=== PATIENT | female | born 1975 | race Caucasian/White ===

== ENCOUNTER 2019-04-18 09:34 | Outpatient (CLI) | payer BC, SELFPAY ==
--- NOTE | ~2019-04-18 | MM_ITS ---
EXAMINATION: MM screening joce BI w emmanuel HISTORY: Screening mammogram TECHNIQUE: Craniocaudal and mediolateral oblique 3-D tomosynthesis images were obtained and synthetic 2-D images were generated. CAD analysis was submitted and interpreted. COMPARISON: 07/29/2010 BREAST PARENCHYMAL COMPOSITION: There are scattered areas of fibroglandular density. FINDINGS: There is no evidence of suspicious mass, calcification, or architectural distortion to sugg est malignancy in either breast. There has been no suspicious interval change. IMPRESSION: 1. No mammographic evidence of malignancy. 2. Recommend routine screening mammography in one year. BI-RADS Category 1: Negative Reviewed, dictated and finalized at location A.
== END 2019-04-18 09:35 | disposition home or self-care (01) ==
LOC: ANHIMG 09:37
PROVIDERS: Visit Provider Obstetrics & Gynecology
DX: Z12.31 Encounter for screening mammogram for malignant neoplasm of breast (principal)
CPT/HCPCS: 77063; 77067

== ENCOUNTER 2020-02-28 02:24 | Outpatient (CLI) | payer BC, SELFPAY ==
[2020-02-28 18:38] LABS: SARS-CoV-2 RNA PCR Negative
== END 2020-02-28 02:25 | disposition home or self-care (01) ==
LOC: ANHCOVIDDT 02:24
PROVIDERS: Visit Provider Podiatrist Foot & Ankle Surgery
DX: Z01.812 Encounter for preprocedural laboratory examination (principal); Z20.822 Contact with and (suspected) exposure to COVID-19
CPT/HCPCS: C9803; U0003; U0005

== ENCOUNTER 2020-03-02 00:58 | Day surgery (SDC) | payer BC, SELFPAY ==
[2020-02-27 11:49] VITALS: BMI 33.2
--- NOTE | 2020-03-01 15:25 | WPDANESEPPF ---
Anes - Initial Pre Proc Eval Procedure: Operation Date: 03/02/20 10:45 Proposed Procedures p Lapidus Bunionectomy Left Foot, - Alli Law JR, MD s Fidel Phalangeal Osteotomy Left Hallux - Alli Law JR, MD Date/Time: 03/01/20 15:25 Surgeon: Alli Law JR, MD Pre Op Diagnosis: bunion left foot Patient Data Age: 45 Gender: F Height: 1.55 m Weight: 79.83 kg Allergies Allergy/AdvReac Type Severity Reaction Status Date / Time No Known Allergies Allergy Verified 03/02/20 08:44 Home Medications Medication Instructions Recorded Confirmed Type No Home Medications 09/06/19 03/02/20 History Patient hx anesthesia problems: none Family hx anesthesia problems: none PMFSH Past Medical History Medical History (Updated 03/01/20 @ 15:25 by Kam Portillo MD) Obesity Family History Family History Mother Hypertension Family history of elevated blood lipids Grandparent Hypertension Cerebrovascular accident Father Family history of elevated blood lipids Social History Social History Smoking status: Never smoker Second hand tobacco smoke exposure: No Alcohol intake: never Living arrangements: with family Spiritual care concerns: No Anes - Eval Final PreProcedure Day of Procedure 03/01/20 15:25 Patient weight: obese Heart: regular rate and rhythm Lungs: clear to auscultation and normal air movement Airway: Mallampati scale class II Neurological: alert and oriented Last oral intake: >/= 8 hours ASA classification: II Emergent: no Anesthetic plan: proceed Anesthesia type and monitoring: general LMA Informed Consent: The patient's anesthetic plan and its attendant risks and benefits were discussed with the patient/family/POA. Questions were solicited and answers provided to the satisfaction of the patient/family/POA.
--- NOTE | ~2020-03-02 | XR_ITS ---
EXAMINATION: XR surgery orthopedic DATE: 03/02/2020 14:01 INDICATION: Left foot bunionectomy TECHNIQUE: 2 fluoroscopic spot images of the left forefoot were obtained during procedure performed liliam Law. Radiologist was not present for the imaging or procedure. The amount of fluoroscopy t caridad used during this procedure was 0.4 minutes. COMPARISON: None. FINDINGS: Old healed realignment osteotomy at the distal diaphysis of the fifth metatarsal with cerclage wire f ixation. Likely chronic first tarsal metatarsal arthrodesis with dorsal plate and screw fixation. The re is an additional cannulated lag screw extending between the base of the first metatarsal and inter mediate cuneiform. Soft tissue swelling is small amount of gas in the region of the first metatarsoph alangeal joint with recent-appearing bunionectomy/osteotomy at the medial head of the first metatarsa l. There is a staple at the medial base of the first proximal phalanx likely related to an age-indete rminate realignment osteotomy. Alignment of the bones appears near-anatomic. No fracture. Profiled marva int spaces appear relatively preserved. IMPRESSION: 1. Likely combination of old and new postoperative changes in the left mid and forefoot as detailed a servando. Correlate with procedure note. Reviewed, dictated and finalized at location A. NDER PRESS FEEDER IMPRESSION: 1. Likely combination of old and new postoperative changes in the left mid and forefoot as detailed above. Correlate with procedure note.
--- NOTE | 2020-03-02 07:02 | WPDHPUPDATE1 ---
History and Physical Update Update Date/Time: 03/02/20 07:02 History and Physical has been reviewed, including an updated exam of the patient. There are NO changes in the patient's condition. Risks, benefits, and alternatives have been discussed and questions answered. Patient agrees to proceed with procedure.
[2020-03-02 08:40] VITALS: BP 159/98; PULSE 93; RESP 16; TEMP 36.5; O2SAT 100
[2020-03-02] MEDS: LACTATED RINGERS 1,000 ML 30 ML IV CONT ×2 (09:02→14:19)
--- NOTE | 2020-03-02 09:23 | WPDANESPNB ---
Anes - Peripheral Nerve Block Date/Time: 03/02/20 09:23 I have discussed with the patient/family/POA the placement of a peripheral nerve block for post-operative pain management, including associated risks, benefits, complications, and side effects. Alternative methods of post-operative analgesia were detailed. Questions were solicited and answers provided to the satisfaction of the patient/family/POA. Time-Out: A pre-procedural Time-Out was completed immediately before starting the procedure and confirmed: Patient Identification, Site, Procedure, Patient Position and the Availability of Requisite Equipment. Clinical Indications: Acute post-operative pain management requested by the operative surgeon. Nerve Block Insertion Note Needle: 22 gauge, stimulating, insulated echogenic needle.
--- NOTE | 2020-03-02 11:47 | SUR.PREOP ---
patient and call to her mom to inform of delay understanding stated by both
[2020-03-02] MEDS: ceFAZolin 2 GM/D5W 50 ML 2 GM/50 ML BAG IVPB (12:22)
[2020-03-02] MEDS: BUPIVACAINE HCL 0.5% PF 30 ML VIAL 10 ML INFILTRATE (12:29)
--- NOTE | 2020-03-02 13:42 | SUR.OPER ---
left foot Lapidus Implants 4.0x35 cannulated screw 1 Lapifuse Lapidus Plate 1 3.5x18 Locking Screw 2 3.5x18 Nonlock Screw 1 3.5x16 Locking Screw 1 3.5x12 Locking Screw 1 Fidel Holguin [id number] Fuseforce Nitinol Staple Kit Lot [id number], Exp 2024-06-19.
[2020-03-02 14:19] VITALS: BP 112/69; PULSE 99; RESP 20; O2SAT 93
--- NOTE | 2020-03-02 14:24 | PM.PROC ---
Procedure Note - Detailed Date of procedure: 03/02/20 Pre-op diagnosis: bunion left foot Procedure performed: 1. Lapidus bunionectomy left foot 2. Fidel Phalangeal osteotomy left hallux Implants: [employer] Lapifuse plate with four 3.5 locking screws and one 3.5 non locking screw. One 4.0mm MaxTorque [employer]guin medical cannulated screw Anesthesia: GLMA and local Surgeon: Alli Law JR, DPM Estimated blood loss (mL): 5 Drains: No Packing: No Pathology: none sent Complications: No immediate complications Condition: stable Disposition: same day Findings: Under mild sedation, the patient was brought to the operating room, placed on the operating table in the supine position. A pneumatic ankle tourniquet was placed about the patient's left ankle. Following general anesthesia a tibial and deep peroneal nerve block was performed with a one to one mixture of 2% Lidocaine plain and 0.5% Marcaine plain. The foot was then scrubbed, prepped, and draped in the usual aseptic manner. An Esmarch bandage was then used to examine the patient's left foot and pneumatic ankle tourniquet was then inflated. Surgery began in the following manner. Attention was directed to the dorsal aspect of the 1st metatarsocuneiform to the left foot where fluoroscopy was used to identify the joint. A 3 cm incision was made overlying the dorsal aspect of the 1st metatarsocuneiform joint of the left foot just medial to the extensor hallucis longus tendon. The incision was then continued deep down through the subcutaneous tissues using sharp and blunt dissections. All bleeders were ligated and cauterized as necessary. At this point, the extensor tendon was identified and reflected laterally. Next, the periosteum and capsular incision was made at the full length of the skin incision exposing the medial cuneiform as well as the base of the 1st metatarsal. Next, a sagittal bone saw was introduced from dorsal to plantar across the 1st metatarsocuneiform joint in order to free up any ankylosed portions of the joint and also to release any adhesions. Two Steinmann Pins were driven from dormal to plantar 1cm proximal and distal to the 1st metatarsal cuneiform joint. The provided curved osteotomy was used to resect the cartilage and a 2.0mm drill bit was used to fenestrate the joint to promote fusion. At this point, a small 2 cm incision was made along the lateral aspect of the 1st metatarsophalangeal joint of the left foot and a lateral release consisting of a lateral capsule incision as well as fraying of the adductor hallucis tendon with the tenotomy as well as releasing the distal aspect and lateral aspect and proximal aspect of the fibular sesamoid. After this, a lateral release was performed. The hallux was noted to be slightly reduced as far as the track-bound hallux. A 3m incision was made medial to the first metatarsal head extending proximal to the proximal phalanx. A 1.4mm Steinmann pin was driven from medial to lateral across the 1st metatarsal head. Next the Lapifuse positioner was used to get 3 plane correction of the hallux abductovalgus deformity. Fluoroscopy was used to make sure that the 1st MPJ was congruous and the sesamoid apparatus was centered under the first metatarsal. Next a 4mm cannulated screw was driven from the medial base of the 1st metatarsal to the intermediate cuneiform bone. Excellent compression was noted, next a Lapifuse 2mm step off plate was placed dorsal medially along the 1st metatarsal cuneform joint and 3.5mm screws, 4 locking and one eccenrically drilled non locking, were used to further compress the joint to ensure arthrodesis. At this point the positioner was removed and fluroscopy was used to make sure that deformity correction was maintained. The patient still had slight hallux abductus so I made a closing medial base wedge resection from the base of the proximal phalanx and compressed the osteotomy with a MyCare 8mm n
[2020-03-02 14:45] VITALS: BP 131/91; PULSE 107; RESP 18; O2SAT 97
[2020-03-02] MEDS: oxyCODONE HCL (*CRX) 5 MG TAB IR PO (14:52)
[2020-03-02 15:15] VITALS: BP 129/84; PULSE 99; RESP 18
== END 2020-03-02 15:42 | disposition home or self-care (01) ==
PROVIDERS: Visit Provider Podiatrist Foot & Ankle Surgery
PROC: (CPT 28299; principal; 2020-03-02 10:45)
PROC: (CPT 28750; 2020-03-02 10:45)
DX: M21.612 Bunion of left foot (principal); E66.9 Obesity, unspecified; Z68.32 Body mass index [BMI] 32.0-32.9, adult
CPT/HCPCS: 28298; 28297; A9270; C1713; C9290; J0690; J2250; J2704; J3010; J7120

== ENCOUNTER 2020-03-21 12:01 | Outpatient (CLI) | payer BC, SELFPAY ==
--- NOTE | ~2020-03-21 | US_ITS ---
EXAMINATION: US venous doppler [facility] DATE: 03/21/2020 12:48 INDICATION: Left lower limb swelling TECHNIQUE: James scale images without and with compression and Doppler images of the left lower extrem ity veins were obtained. COMPARISON: None FINDINGS: There is thrombosis in the left posterior tibial and soleus veins. The left common femoral vein, profunda femoral vein, femoral vein, popliteal vein, peroneal trunk, and greater saphenous vein are patent. IMPRESSION: 1. Thrombosis in the left posterior tibial and soleus veins. Reviewed, dictated and finalized at location A. E BOSS
== END 2020-03-21 12:02 | disposition home or self-care (01) ==
PROVIDERS: Visit Provider Podiatrist Foot & Ankle Surgery
DX: M79.605 Pain in left leg (principal); M79.89 Other specified soft tissue disorders; I82.442 Acute embolism and thrombosis of left tibial vein; I82.462 Acute embolism and thrombosis of left calf muscular vein
CPT/HCPCS: 93971

== ENCOUNTER 2020-03-21 13:06 | Emergency (ER) | payer BC, SELFPAY ==
--- NOTE | 2020-03-21 13:18 | ED.GENADULT ---
HPI - General Adult General Chief complaint: Extremity Injury, Lower Stated complaint: left leg dvt Time Seen by Provider: 03/21/20 13:11 Source: RN notes reviewed History of Present Illness HPI narrative: Patient presents to emergency department from outpatient radiology for left lower extremity DVT. Patient states she had a bunionectomy performed by Dr. Law 3 weeks ago. She states that she had been on Xarelto with her last dose this past Thursday, March 16 states that since then she has been on aspirin she states that she noted some cramping in her left calf starting yesterday and was sent for an outpatient ultrasound today which showed a DVT and was transferred to the ED for further evaluation she denies any fevers or chills chest pain shortness of breath or any other symptoms Related Data Allergies Allergy/AdvReac Type Severity Reaction Status Date / Time No Known Allergies Allergy Verified 03/02/20 08:44 Review of Systems Review of Systems: Narrative: Gen.: Denies fevers or chills ENT: Denies congestion Respiratory: Denies shortness of breath or cough CV: Denies chest pain or palpitations GI: Denies abdominal pain nausea, emesis or diarrhea Musculoskeletal: See HPI Neuro: Denies numbness, tingling, weakness or focal weakness Skin: Denies rash Except as documented, all other systems reviewed and negative [facility] Past Medical History Medical History Obesity Family History Family History Mother Hypertension Family history of elevated blood lipids Grandparent Hypertension Cerebrovascular accident Father Family history of elevated blood lipids Social History Social History Smoking status: Never smoker Second hand tobacco smoke exposure: No Alcohol intake: never Gender identity (if verbalized by the patient): Female Spiritual care concerns: No Exam Narrative: Exam Narrative: APPEARANCE: No acute distress, nontoxic, resting in bed EYES: EOMI HEENT: Normocephalic, atraumatic RESPIRATORY: No respiratory distress Clear to auscultation bilaterally with no rhonchi wheezing or rales. CARDIOVASCULAR: Regular rate and rhythm without murmurs rubs or gallops. ABDOMINAL: Soft, nontender MUSCULOSKELETAl: Moves all extremities. No clubbing, cyanosis or edema. Left lower extremity with postop boot in place left calf tender to palpation no tenderness of the left knee or hip NEURO: Awake and alert. Following commands, speech normal, no focal deficits SKIN:: Warm, dry. No rashes lesions or abrasions PSYCHIATRIC: Normal affect/mood, Course Course Emergency Course: Reviewed ultrasound from outpatient radiology showing a left DVT Discussed with Dr. Law presentation work-up request patient restarted on Xarelto starter pack and will follow as an outpatient Patient states she does not have a current PCP states she used to be seen by Dr. Carballo he does plan to start seeing Dr. Martita Wisdom Discussed with patient results of workup and diagnosis. Discussed need for follow-up with primary care, proper use of medication, and reasons to return to the emergency department. Patient understands and agrees to current treatment plan Vital Signs Vital signs: Vital Signs Temperature 97.8 F 03/21/20 13:34 Pulse Rate 99 03/21/20 13:34 Respiratory Rate 17 03/21/20 13:34 Blood Pressure 128/85 03/21/20 13:34 Pulse Oximetry 99 03/21/20 13:34 Temperature 97.8 F 03/21/20 13:34 Pulse Rate 99 03/21/20 13:34 Respiratory Rate 17 03/21/20 13:34 Blood Pressure 128/85 03/21/20 13:34 Pulse Oximetry 99 03/21/20 13:34 Medical Decision Making Vital Signs Vital Signs: Vital Signs Temperature 97.8 F 03/21/20 13:34 Pulse Rate 99 03/21/20 13:34 Respiratory Rate 17 03/21/20 13:34 Blood Pressure 128/85 03/21/20 13:
[2020-03-21 13:29] LABS: Basophils Absolute Auto 0.1 K/mm3 (0.0-0.1); Basophils Percent Auto 0.6 % (0.2-1.2); Eosinophils Absolute Auto 0.1 K/mm3 (0-0.3); Eosinophils Percent Auto 1.2 % (0-4.4); Hemoglobin 15.3 g/dL (12.0-15.0); Immature Granulocyte Absolute 0.02 K/mm3 (0.00-0.031); Immature Granulocyte Percent A 0.2 % (0-0.5); Lymphocytes Absolute Auto 1.74 K/mm3 (0.9-3.2); Lymphocytes Percent Auto 21.2 % (18.3-44.2); Mean Corpuscular HGB Conc 33.3 g/dl (32-36); Mean Corpuscular Volume 90.2 fl (80-100); Mean Platelet Volume 9.9 fl (7.4-10.4); Monocytes Absolute Auto 0.6 K/mm3 (0.1-0.6); Monocytes Percent Auto 7.3 % (2.6-8.5); Neutrophils Absolute Auto 5.7 K/mm3 (1.3-6.7); Neutrophils Percent Auto 69.5 % (45.5-73.1); Platelet Count Result 318 k/mm3 (150-375); Red Cell Distribution Width 12.2 % (11.5-14.5); White Blood Count 8.2 K/mm3 (4.5-10.0)
[2020-03-21 13:34] VITALS: BP 128/85; PULSE 99; RESP 17; TEMP 36.6; O2SAT 99
[2020-03-21 13:39] LABS: Prothrombin Time 13.9 Seconds (11.1-14.7)
[2020-03-21 13:40] LABS: Partial Thromboplastin Time 27.9 SECONDS (22.3-36.8)
[2020-03-21 13:45] LABS: Anion Gap 10 mmol/L (8-16); Blood Urea Nitrogen 16 mg/dL (7-17); Calcium 9.7 mg/dL (8.4-10.2); Carbon Dioxide 26 mmol/L (22-30); Chloride 103 mmol/L (98-107); Estimated CRCL calculation 97 ml/min; Estimated Glomerular Filt Rate > 60; Glucose 98 mg/dL (65-105); Potassium 3.9 mmol/L (3.4-5.0); Sodium 139 mmol/L (137-145)
[2020-03-21] MEDS: RIVAROXABAN 15 MG TABLET PO (14:01)
--- NOTE | 2020-03-21 14:26 | PCCCNOTE ---
Care Coordination spoke with pt and her mother about cost of Xarelto. Pt states she just took her last Xarelto for her surgical procedure today. Now due to having DVT she will need Xarelto 15 mg BID for 21 days. Spoke with Pharmacist at [facility] about cost of medication. Pharmacy states pt will have a $70 co-pay. Informed pt that she could possibly be eligiable for $10 coupon on-line at [employer] and look up care pack and then present coupon code to pharmacy when picking up med. Informed pt the ED MD states she will need to take Xarelto a total of 3 months. Pt and mother states she is agreeable to taking Xarelto.
[2020-03-21 14:53] VITALS: BP 127/73; PULSE 90; RESP 15; O2SAT 99
== END 2020-03-21 14:55 | disposition home or self-care (01) ==
LOC: ANHED 14:30
PROVIDERS: Emergency Provider Emergency Medicine
DX: I82.402 Acute embolism and thrombosis of unspecified deep veins of left lower extremity (principal)
CPT/HCPCS: 36415; 80048; 85025; 85610; 85730; 99283; A9270

== ENCOUNTER 2020-03-24 13:39 | Emergency (ER) | payer BC, SELFPAY ==
[2020-03-24 13:46] VITALS: BP 141/95; PULSE 114; RESP 16; TEMP 36.4; O2SAT 98
--- NOTE | 2020-03-24 14:09 | ED.LOWEXIN ---
HPI - Extremity Injury (Lower) General Chief Complaint: Extremity Injury, Lower Stated Complaint: left leg dvt Time Seen by Provider: 03/24/20 13:54 Source: patient and family Mode of arrival: ambulatory Limitations: no limitations History of Present Illness HPI Narrative: 45-year-old female comes into the emergency department today with complaints of pain and swelling in her left foot. Patient has a few issues going on. She admits to a recent bunionectomy performed by her polisher dial on 09 March. This has been healing well. Patient was unfortunately subsequently diagnosed with a DVT in her calf on the same side on the of this month. Patient has been taking Xarelto for this. She states that she had a little bit of discoloration, pain and throbbing in this affected foot. She notes that now that she is come to the ER and that her foot has been elevated the discoloration seems to have nearly completely disappeared. Her mother also notes that they were concerned about some discharge from one of the surgical wounds. Related Data Allergies Allergy/AdvReac Type Severity Reaction Status Date / Time No Known Allergies Allergy Verified 03/24/20 14:15 Review of Systems Review of Systems: Narrative: CONSTITUTIONAL: Denies fever, chills, or sweats. EYES: Denies visual changes, redness, or discharge. ENT: Denies rhinorrhea, congestion, sore throat, or otalgia. CARDIOVASCULAR: Denies chest pain, palpitations, or edema. RESPIRATORY: Denies cough or dyspnea. GASTROINTESTINAL: Denies abdominal pain, nausea, vomiting, or diarrhea. GENITOURINARY: Denies dysuria or hematuria. SKIN: Denies rash or itching. MUSCULOSKELETAL: Denies back pain, joint pain, or myalgia. NEUROLOGIC: Denies headache, numbness, dizziness, or weakness. PSYCHIATRIC: Denies anxiety or depression. [facility] Past Medical History Medical History Obesity Family History Family History Mother Hypertension Family history of elevated blood lipids Grandparent Hypertension Cerebrovascular accident Father Family history of elevated blood lipids Social History Social History Smoking status: Never smoker Second hand tobacco smoke exposure: No Alcohol intake: never Gender identity (if verbalized by the patient): Female Spiritual care concerns: No Exam Narrative: Exam Narrative: GENERAL: Well-appearing, well-nourished, and in no acute distress. HEAD: Normocephalic, atraumatic. EYES: PERRLA and EOMI. ENT: Nares clear, no rhinorrhea or epistaxis. Mucous membranes moist. Oropharynx without tonsillar hypertrophy exudate or other lesions. Bilateral TMs pearly delacruz nonbulging NECK: Supple. No adenopathy or masses. No carotid bruits or JVD CHEST: Clear to auscultation. No respiratory distress. No wheezes rales or rhonchi HEART: Regular rate and rhythm. No murmur heard. Normal peripheral pulses. ABDOMEN: Soft, nontender, nondistended, normal active bowel sounds. EXTREMITIES: Normal range of motion. No edema. No erythema or warmth palpated on the affected foot. Surgical wounds appear to be healing well. Dried serous and bloody drainage noted from the different wounds. [place] tint to the foot likely consistent with surgical scrub. SKIN: Warm, dry, no rash. NEURO: No focal deficits. Alert and oriented x3. PSYCH: Normal mood and affect. Course Vital Signs Vital signs: Vital Signs Temperature 36.4 C 03/24/20 13:46 Pulse Rate 114 H 03/24/20 13:46 Respiratory Rate 16 03/24/20 13:46 Blood Pressure 141/95 H 03/24/20 13:46 Pulse Oximetry 98 03/24/20 13:46 Temperature 36.4 C 03/24/20 13:46 Pulse Rate 114 H 03/24/20 13:46 Respiratory Rate 16 03/24/20 13:46 Blood Pressure 141/95 H 03/24/20 13:46 Pulse Oximetry 98 03/24/20 13:46 MDM - Extremity Injury (Lower) M
[2020-03-24 14:30] VITALS: BP 116/85; PULSE 95; RESP 19; TEMP 36.4; O2SAT 98
== END 2020-03-24 14:30 | disposition home or self-care (01) ==
LOC: ANHED 14:27
PROVIDERS: Emergency Provider Emergency Medicine; PCP Family Medicine
DX: Z48.01 Encounter for change or removal of surgical wound dressing (principal); E66.9 Obesity, unspecified; Z68.33 Body mass index [BMI] 33.0-33.9, adult
CPT/HCPCS: 99281

== ENCOUNTER 2020-04-12 09:59 | Outpatient (CLI) | payer BC, SELFPAY ==
--- NOTE | ~2020-04-12 | US_ITS ---
EXAMINATION: US venous doppler [facility] DATE: 04/12/2020 10:33 INDICATION: Acute left calf deep vein thrombosis. TECHNIQUE: Grayscale ultrasound images without and with compression and Doppler ultrasound images of the left lower extremity veins were obtained. COMPARISON: Ultrasound 03/21/2020 FINDINGS: The visualized portions of left common femoral vein, profunda (deep) femoral vein, femoral vein, popl iteal vein, peroneal veins, posterior tibial veins, and greater saphenous vein outflow are patent. Th ere is thrombus in left soleus vein. IMPRESSION: 1. Persistent deep vein thrombosis involving left soleus vein. Reviewed, dictated and finalized at location A. T ARM OPERATOR
== END 2020-04-12 10:00 | disposition home or self-care (01) ==
PROVIDERS: PCP Family Medicine; Visit Provider Nurse Practitioner
DX: I82.402 Acute embolism and thrombosis of unspecified deep veins of left lower extremity (principal)
CPT/HCPCS: 93971

== ENCOUNTER 2020-05-21 08:47 | Outpatient (CLI) | payer BC, SELFPAY ==
--- NOTE | ~2020-05-21 | MM_ITS ---
EXAMINATION: MM screening joce BI w emmanuel HISTORY: Screening TECHNIQUE: Craniocaudal and mediolateral oblique 3-D tomosynthesis images were obtained and synthetic 2-D images were generated. CAD analysis was submitted and interpreted. COMPARISON: Comparison to multiple prior studies sequentially, with oldest reviewed study dated 07/29. BREAST PARENCHYMAL COMPOSITION: The breasts are heterogeneously dense, which may obscure small masses . FINDINGS: There is no evidence of suspicious mass, calcification, or architectural distortion to sugg est malignancy in either breast. There has been no suspicious interval change. IMPRESSION: 1. No mammographic evidence of malignancy. 2. Recommend routine screening mammography in one year. BI-RADS Category 1: Negative Reviewed, dictated and finalized at location A.
== END 2020-05-21 08:48 | disposition home or self-care (01) ==
LOC: ANHIMG 08:49
PROVIDERS: PCP Family Medicine; Visit Provider Obstetrics & Gynecology
DX: Z12.31 Encounter for screening mammogram for malignant neoplasm of breast (principal)
CPT/HCPCS: 77063; 77067

== ENCOUNTER 2020-09-04 12:52 | Outpatient (CLI) | payer BC, SELFPAY ==
--- NOTE | ~2020-09-04 | US_ITS ---
EXAMINATION: US venous doppler [facility] DATE: 09/04/2020 13:25 INDICATION: Left lower limb acute deep venous thrombosis. TECHNIQUE: Grayscale ultrasound images without and with compression and Doppler ultrasound images of the left lower extremity veins were obtained. COMPARISON: 04/12/2020 FINDINGS: The visualized portions of left common femoral vein, profunda (deep) femoral vein, femoral vein, popl iteal vein, peroneal veins, posterior tibial veins, gastrocnemius vein and greater saphenous vein out flow remain patent. The left soleal vein is now patent and compressible. IMPRESSION: 1. No deep venous thrombosis in the left lower limb. Resolution of prior thrombosis in the left sole al vein. Reviewed, dictated and finalized at location A. IMPRESSION: 1. No deep venous thrombosis in the left lower limb. Resolution of prior throm bosis in the left soleal vein.
== END 2020-09-04 12:53 | disposition home or self-care (01) ==
PROVIDERS: PCP Family Medicine; Visit Provider Nurse Practitioner
DX: I82.402 Acute embolism and thrombosis of unspecified deep veins of left lower extremity (principal)
CPT/HCPCS: 93971

== ENCOUNTER 2021-07-05 08:00 | Outpatient (CLI) | payer BC, SELFPAY ==
--- NOTE | ~2021-07-05 | MM_ITS ---
EXAMINATION: MM screening joce BI w emmanuel HISTORY: Screening mammogram TECHNIQUE: Craniocaudal and mediolateral oblique 3-D tomosynthesis images were obtained and synthetic 2-D images were generated. CAD analysis was submitted and interpreted. COMPARISON: 05/21/2020, 04/18/2019 bilateral screening mammogram examinations BREAST PARENCHYMAL COMPOSITION: The breasts are heterogeneously dense, which may obscure small masses . FINDINGS: There is no evidence of suspicious mass, calcification, or architectural distortion to sugg est malignancy in either breast. There has been no suspicious interval change. IMPRESSION: 1. No mammographic evidence of malignancy. 2. Recommend routine screening mammography in one year. BI-RADS Category 1: Negative Reviewed, dictated and finalized at location A.
== END 2021-07-05 08:01 | disposition home or self-care (01) ==
PROVIDERS: PCP Family Medicine; Visit Provider Obstetrics & Gynecology
DX: Z12.31 Encounter for screening mammogram for malignant neoplasm of breast (principal)
CPT/HCPCS: 77063; 77067

== ENCOUNTER → 2022-08-13 11:59 | Outpatient (CLI) | payer BC, SELFPAY ==
--- NOTE | ~2022-08-13 | XR_ITS ---
Right wrist Technique: PA and lateral views were obtained. Clinical History: Injury Findings: No acute fracture or dislocation is seen. Osseous alignment is anatomic. Joint spaces are p reserved. Soft tissues are unremarkable. Impression: Unremarkable right wrist radiographs. Reviewed, dictated and finalized at location M. Impression: Unremarkable right wrist radiographs.
--- NOTE | ~2022-08-13 | XR_ITS ---
Right Hand Technique: PA, oblique, and lateral views were obtained. Clinical History: Injury Findings: No acute fracture or dislocation is seen. Osseous alignment is anatomic. Joint spaces are p reserved. Soft tissues are unremarkable. Impression: Unremarkable right hand. Reviewed, dictated and finalized at location M. Impression: Unremarkable right hand.
== END ==
PROVIDERS: PCP Family Medicine; Visit Provider Nurse Practitioner Family
DX: M79.641 Pain in right hand (principal)
CPT/HCPCS: 73100; 73130

== ENCOUNTER 2022-12-26 07:42 | Outpatient (CLI) | payer BC, SELFPAY ==
--- NOTE | ~2022-12-26 | MM_ITS ---
EXAMINATION: MM screening joce BI w emmanuel HISTORY: Screening mammogram TECHNIQUE: Craniocaudal and mediolateral oblique 3-D tomosynthesis images were obtained and synthetic 2-D images were generated. CAD analysis was submitted and interpreted. COMPARISON: 07/05/2021, 05/21/2020, 04/18/2019 bilateral screening mammogram examinations BREAST PARENCHYMAL COMPOSITION: The breasts are heterogeneously dense, which may obscure small masses . FINDINGS: There is no evidence of suspicious mass, calcification, or architectural distortion to sugg est malignancy in either breast. There has been no suspicious interval change. IMPRESSION: 1. No mammographic evidence of malignancy. 2. Recommend routine screening mammography in one year. BI-RADS Category 1: Negative Reviewed, dictated and finalized at location B. IPITATOR OPERATOR
== END 2022-12-26 07:43 | disposition home or self-care (01) ==
PROVIDERS: PCP Family Medicine; Visit Provider Obstetrics & Gynecology
DX: Z12.31 Encounter for screening mammogram for malignant neoplasm of breast (principal)
CPT/HCPCS: 77063; 77067

== ENCOUNTER 2023-06-05 08:01 | Outpatient (CLI) | payer BC, SELFPAY ==
[2023-06-05 13:52] LABS: Basophils Percent Auto 0.7 % (0.2-1.2); Eosinophils Absolute Auto 0.1 K/mm3 (0-0.3); Eosinophils Percent Auto 1.7 % (0-4.4); Hematocrit 43.4 % (37.0-47.0); Hemoglobin 14.1 g/dL (12.0-15.0); Immature Granulocyte Absolute 0.02 K/mm3 (0.00-0.031); Immature Granulocyte Percent A 0.3 % (0-0.5); Lymphocytes Absolute Auto 1.71 K/mm3 (0.9-3.2); Lymphocytes Percent Auto 29.7 % (18.3-44.2); Mean Corpuscular HGB Conc 32.5 g/dl (32-36); Mean Corpuscular Hemoglobin 30.5 pg (26-34); Mean Corpuscular Volume 93.7 fl (80-100); Monocytes Absolute Auto 0.6 K/mm3 (0.1-0.6); Monocytes Percent Auto 10.3 % (2.6-8.5); Neutrophils Absolute Auto 3.3 K/mm3 (1.3-6.7); Neutrophils Percent Auto 57.3 % (45.5-73.1); Platelet Count Result 252 k/mm3 (150-375); Red Blood Count 4.63 M/mm3 (4.2-5.4); Red Cell Distribution Width 13.2 % (11.5-14.5); White Blood Count 5.8 K/mm3 (4.5-10.0)
[2023-06-05 14:02] LABS: Alanine Aminotransferase 30 U/L (6-35); Albumin Level 4.8 g/dL (3.5-5.1); Alkaline Phosphatase 73 U/L (38-126); Anion Gap 9 mmol/L (4-12); Aspartate Amino Transferase 51 U/L (14-36); Bilirubin,Total 0.5 mg/dL (0.2-1.3); Blood Urea Nitrogen 21 mg/dL (7-17); Calcium 9.6 mg/dL (8.4-10.2); Carbon Dioxide 25 mmol/L (22-30); Chloride 108 mmol/L (98-107); Cholesterol 191 mg/dL (0-200); Estimated Glomerular Filt Rate > 60; Glucose 97 mg/dL (65-110); HDL Direct 45 mg/dL; Potassium 4.3 mmol/L (3.4-5.0); Sodium 142 mmol/L (137-145); Triglycerides 160 mg/dL (<150)
[2023-06-05 14:13] LABS: LDL Cholesterol Direct 102 mg/dL
[2023-06-05 15:00] LABS: Vitamin D 25 Hydroxy 38.6 ng/mL
== END 2023-06-05 08:02 | disposition home or self-care (01) ==
LOC: ANHGOSHLAB 08:02
PROVIDERS: PCP Family Medicine; Visit Provider Family Medicine
DX: Z00.00 Encounter for general adult medical examination without abnormal findings (principal); E78.5 Hyperlipidemia, unspecified; G43.509 Persistent migraine aura without cerebral infarction, not intractable, without status migrainosus; E55.9 Vitamin D deficiency, unspecified; E53.8 Deficiency of other specified B group vitamins; Z79.899 Other long term (current) drug therapy; Z13.29 Encounter for screening for other suspected endocrine disorder
CPT/HCPCS: 36415; 80053; 80061; 82306; 82607; 84443; 85025

== ENCOUNTER 2024-04-26 07:54 | Outpatient (CLI) | payer BC, SELFPAY ==
--- NOTE | ~2024-04-26 | MM_ITS ---
EXAMINATION: MM screening joce BI w emmanuel HISTORY: Screening TECHNIQUE: Craniocaudal and mediolateral oblique 3-D tomosynthesis images were obtained and synthetic 2-D images were generated. CAD analysis was submitted and interpreted. COMPARISON: Comparison to multiple prior studies sequentially, with oldest reviewed study dated 10/2019. BREAST PARENCHYMAL COMPOSITION: Not dense: There are scattered areas of fibroglandular density. FINDINGS: There is no evidence of suspicious mass, calcification, or architectural distortion to sugg est malignancy in either breast. There has been no suspicious interval change. IMPRESSION: 1. No mammographic evidence of malignancy. 2. Recommend routine screening mammography in one year. BI-RADS Category 1: Negative Reviewed, dictated and finalized at location B.
== END 2024-04-26 07:55 | disposition home or self-care (01) ==
LOC: ANHIMG 07:56
PROVIDERS: PCP Family Medicine; Visit Provider Obstetrics & Gynecology
DX: Z12.31 Encounter for screening mammogram for malignant neoplasm of breast (principal)
CPT/HCPCS: 77063; 77067

== ENCOUNTER 2024-06-04 07:30 | Outpatient (CLI) | payer BC, SELFPAY ==
--- OUTSIDE RECORDS SUMMARY | 2024-06-04 07:33 | XMS_ITS | Clinical Summary ---
Author Organization [facility] Address [facility] [place] [address] Care Team Providers Care News Content Specialist Name Role Phone Unavailable Primary Care Provider Unavailabl e Social History Tobacco Use Types Packs/Day Years Used Date Smoking Tobacco: Never Assessed Comments Unknown Sex and Gender Information Value Date Recorded Sex Assigned at Not on file Legal Sex Female 7:01 PM CDT Gender Identity Not on file Sexual Orientation Not on file Plan of Treatment Health Maintenance Due Date Last Done Comments Cervical Cancer Screening Pa p Smear (Age 30 to 64) Every 3 Years 1976 Colorectal Cancer Screening Colonoscopy (10 Years) 1976 Annual Physical 02/10/1979 Hepatitis C 02/10/1994 DTaP, Tdap and Td Vaccines ( 1 - Tdap) 02/10/1995 Hepatitis B Vaccines (1 of 3 - 19+ 3-dose series) 02/10/1995 Cervical Cancer Screening Pa p with HPV Testing (Age 30 to 64) Every 5 Years 02/10/2006 Cervical Cancer Screening with HPV 02/10/2006 Mammogram Screening 2016 COVID-19 Vaccine (2023-2 5 season) 2023 Meningococcal B Vaccine Aged Out No l onger eligible based on patient's age to complete this topic Meningococcal Vaccine Aged Out No caio daniel eligible based on patient's age to complete this topic Pneumococcal Vaccine: Pediat rics (0 to 5 Years) and At-Risk Patients (6 to 49 Years) Aged Out No longer eligible b ased on patient's age to complete this topic RSV Immunizations Under 20 Months Aged Out No longer eligible based on patient's age to complete this topic
[2024-06-04 08:16] LABS: Basophils Percent Auto 0.5 % (0.2-1.2); Eosinophils Absolute Auto 0.1 K/mm3 (0-0.3); Hematocrit 43.5 % (37.0-47.0); Hemoglobin 14.2 g/dL (12.0-15.0); Immature Granulocyte Absolute 0.03 K/mm3 (0.00-0.031); Immature Granulocyte Percent A 0.5 % (0-0.5); Lymphocytes Absolute Auto 1.71 K/mm3 (0.9-3.2); Lymphocytes Percent Auto 26.6 % (18.3-44.2); Mean Corpuscular HGB Conc 32.6 g/dl (32-36); Mean Corpuscular Hemoglobin 29.2 pg (26-34); Mean Corpuscular Volume 89.3 fl (80-100); Mean Platelet Volume 10.4 fl (7.4-10.4); Monocytes Absolute Auto 0.5 K/mm3 (0.1-0.6); Monocytes Percent Auto 7.8 % (2.6-8.5); Neutrophils Percent Auto 62.6 % (45.5-73.1); Platelet Count Result 262 k/mm3 (150-375); Red Blood Count 4.87 M/mm3 (4.2-5.4); Red Cell Distribution Width 12.9 % (11.5-14.5); White Blood Count 6.4 K/mm3 (4.5-10.0)
[2024-06-04 08:33] LABS: Alanine Aminotransferase 30 U/L (6-35); Albumin Level 4.7 g/dL (3.5-5.1); Alkaline Phosphatase 87 U/L (38-126); Anion Gap 9 mmol/L (4-12); Aspartate Amino Transferase 24 U/L (14-36); Bilirubin,Total 0.6 mg/dL (0.2-1.3); Blood Urea Nitrogen 19 mg/dL (7-17); Calcium 9.1 mg/dL (8.4-10.2); Carbon Dioxide 25 mmol/L (22-30); Chloride 106 mmol/L (98-107); Cholesterol 201 mg/dL (0-200); Estimated Glomerular Filt Rate > 60; Glucose 102 mg/dL (65-110); HDL Direct 50 mg/dL; Potassium 3.8 mmol/L (3.4-5.0); Sodium 140 mmol/L (137-145); Triglycerides 120 mg/dL (<150)
[2024-06-04 08:44] LABS: LDL Cholesterol Direct 98 mg/dL
[2024-06-04 09:23] LABS: Vitamin D 25 Hydroxy 57.4 ng/mL
[2024-06-04 10:52] LABS: Hemoglobin A1C 5.4 % (<5.7)
== END 2024-06-04 07:31 | disposition home or self-care (01) ==
LOC: ANHLAB 07:31
PROVIDERS: PCP Family Medicine; Visit Provider Family Medicine
DX: R73.9 Hyperglycemia, unspecified (principal); E78.5 Hyperlipidemia, unspecified; G43.511 Persistent migraine aura without cerebral infarction, intractable, with status migrainosus; Z13.29 Encounter for screening for other suspected endocrine disorder; E53.8 Deficiency of other specified B group vitamins; E55.9 Vitamin D deficiency, unspecified; Z00.00 Encounter for general adult medical examination without abnormal findings; I10 Essential (primary) hypertension
CPT/HCPCS: 36415; 80053; 80061; 82306; 82607; 83036; 84443; 85025

== ENCOUNTER 2024-09-13 00:31 | Day surgery (SDC) | payer BC, SELFPAY ==
[2024-08-25 14:49] VITALS: BMI 34.6
--- OUTSIDE RECORDS SUMMARY | 2024-09-13 00:34 | XMS_ITS | Clinical Summary ---
Author Organization [facility] Address [facility] [place] [address] Care Team Providers Care Drier Operator Head Name Role Phone Unavailable Primary Care Provider [...]
[2024-09-13 08:10] VITALS: BP 148/92; PULSE 92; RESP 18; TEMP 36.1; O2SAT 99; BMI 34.6
[2024-09-13] MEDS: LACTATED RINGERS 1,000 ML 150 ML IV CONT (08:21)
[2024-09-13 08:54] LABS: BEDSIDEPREGUCG Negative (Negative)
--- NOTE | 2024-09-13 09:01 | WPDANESEPPF ---
Anes - Initial Pre Proc Eval Procedure: Operation Date: 09/13/24 09:30 Proposed Procedures p Screening Colonoscopy - Samy Garcia MD Date/Time: 09/13/24 09:01 Surgeon: Samy Garcia MD Pre Op Diagnosis: Screening Patient Data Age: 49 Gender: F Height: 1.55 m Weight: 83.1 kg Last Vital Signs Temp 36.1 C L 09/13/24 08:10 Pulse 92 09/13/24 08:10 Resp 18 09/13/24 08:10 BP 148/92 H 09/13/24 08:10 Pulse Ox 99 09/13/24 08:10 O2 Del Method Room Air 09/13/24 08:10 Allergies Allergy/AdvReac Type Severity Reaction Status Date / Time No Known Allergies Allergy Verified 09/13/24 08:08 Home Medications ?Medication ?Instructions ?Recorded ?Confirmed ?Type multivitamin 1 tablet PO DAILY 04/03/20 09/13/24 History cholecalciferol (vitamin D3) 50 50 mcg PO DAILY 09/11/20 09/13/24 History mcg (2,000 unit) capsule acetaminophen 325 mg tablet 325 mg PO BID PRN pain 05/30/24 08/25/24 History (Tylenol) atorvastatin 40 mg tablet 40 mg PO DAILY #100 tabs 05/30/24 09/13/24 Rx Laboratory Tests 09/13/24 08:52 POC Urine HCG, Qual Negative (Negative) Patient hx anesthesia problems: post op nausea/vomiting Family hx anesthesia problems: post op nausea/vomiting Results Review: All pre-operative results and documents have been reviewed as part of the pre-operative evaluation. FOR[facility]LY [facility], [facility] Past Medical History Medical History History of deep venous thrombosis (DVT) of distal vein of left lower extremity (~03/21/20) Vitamin D deficiency Hyperlipidemia Migraine aura, persistent Surgical History Surgical History History of bunionectomy (~03/02/20) left - 2020, 2009 right -2009 Family History Family History Mother Hypertension Family history of elevated blood lipids Grandparent Hypertension Cerebrovascular accident Father Family history of elevated blood lipids Hypertension Cancer Social History Social History Social History: Caffeine-coffee daily Smoking status: Never smoker Second hand tobacco smoke exposure: No Alcohol intake: never Substance use: never Substance use type: does not use Do You Feel Safe in your Home?: Yes Lack of Transportation: No Lack of Food: Never True Current Housing: I Have Housing Concerned About Future Housing: No Difficulty Paying Gas/Electric Bills: No Difficulty Paying for Meds: No Currently Unemployed: No Education: Associate Degree Difficulty w/ Childcare or Family Care: No Living arrangements: with family Occupation/Education: occupation Additional occupation/education comments: Homemaker Gender identity (if verbalized by the patient): Female Sexual Orientation (if Verbalized by the Patient): Straight or Heterosexual Spiritual care concerns: No Anes - Eval Final PreProcedure Day of Procedure 09/13/24 09:01 Patient weight: obese Heart: regular rate and rhythm Lungs: clear to auscultation Airway: Mallampati scale class II Neurological: alert and oriented Last oral intake: >/= 8 hours ASA classification: II Emergent: no Anesthetic plan: proceed Anesthesia type and monitoring: general GIVS and standard monitoring Results Review: All pre-operative results and documents have been reviewed as part of the pre-operative evaluation. Informed Consent: The patient's anesthetic plan and its attendant risks and benefits were discussed with the patient/family/POA. Questions were solicited and answers provided to the satisfaction of the patient/family/POA.
--- NOTE | 2024-09-13 09:26 | PM.HPGS ---
History of Present Illness History of Present Illness Consent: Risks, benefits, and alternatives have been discussed and questions answered. Patient agrees to proceed with procedure. Chief complaint: Screening Narrative: Genna Saavedra is a 49 year old female here for first screening colonoscopy Review of Systems Review of Systems: All systems reviewed & are unremarkable except as noted in HPI and below PMFSH Past Medical History Medical History (Updated 09/13/24 @ 09:27 by Samy Garcia MD) Colon cancer screening History of deep venous thrombosis (DVT) of distal vein of left lower extremity (~03/21/20) Vitamin D deficiency Hyperlipidemia Migraine aura, persistent Surgical History Surgical History History of bunionectomy (~03/02/20) left - 2020, 2010 right -2009 Family History Family History Mother Hypertension Family history of elevated blood lipids Grandparent Hypertension Cerebrovascular accident Father Family history of elevated blood lipids Hypertension Cancer Social History Social History Social History: Caffeine-coffee daily Smoking status: Never smoker Second hand tobacco smoke exposure: No Alcohol intake: never Substance use: never Substance use type: does not use Do You Feel Safe in your Home?: Yes Lack of Transportation: No Lack of Food: Never True Current Housing: I Have Housing Concerned About Future Housing: No Difficulty Paying Gas/Electric Bills: No Difficulty Paying for Meds: No Currently Unemployed: No Education: Associate Degree Difficulty w/ Childcare or Family Care: No Living arrangements: with family Occupation/Education: occupation Additional occupation/education comments: Homemaker Gender identity (if verbalized by the patient): Female Sexual Orientation (if Verbalized by the Patient): Straight or Heterosexual Spiritual care concerns: No Meds Home Medications and Allergies Home Medications ?Medication ?Instructions ?Recorded ?Confirmed ?Type multivitamin 1 tablet PO DAILY 04/03/20 09/13/24 History cholecalciferol (vitamin D3) 50 50 mcg PO DAILY 09/11/20 09/13/24 History mcg (2,000 unit) capsule acetaminophen 325 mg tablet 325 mg PO BID PRN pain 05/30/24 08/25/24 History (Tylenol) atorvastatin 40 mg tablet 40 mg PO DAILY #100 tabs 05/30/24 09/13/24 Rx Allergies Allergy/AdvReac Type Severity Reaction Status Date / Time No Known Allergies Allergy Verified 09/13/24 08:08 Vital Signs Vital Signs - 24 hr 09/13/24 08:10 Temperature 97 F L Pulse Rate 92 Respiratory Rate 18 Blood Pressure 148/92 H Pulse Oximetry 99 Oxygen Delivery Room Air Exam Const: General: comfortable and no acute distress HENMT: Face/Nose/Sinus: Normal nares present Eyes: General: appearance normal, both eyes and all related structures Neck: Neck: no JVD Resp: Auscultation: clear to auscultation bilaterally Cardio: Rate: regular rate Rhythm: regular rhythm GI: Inspection: non-distended GI Palp: Yes Soft to palpation Skin: General skin exam: normal color Neuro: Speech: normal speech Extrem: General: normal to inspection Psych: Mental Status: mental status grossly normal Assessment and Plan Assessment and plan (1) Colon cancer screening: Code(s): Z12.11 - Encounter for screening for malignant neoplasm of colon Status: Acute Assessment and Plan: colonoscopy
[2024-09-13 09:43] VITALS: BP 117/80; PULSE 82; RESP 20; O2SAT 96
[2024-09-13 09:53] VITALS: BP 140/85; PULSE 77; RESP 18; O2SAT 98
[2024-09-13 10:03] VITALS: BP 128/89; PULSE 78; RESP 18; O2SAT 100
== END 2024-09-13 10:10 | disposition home or self-care (01) ==
PROVIDERS: Anesthesiology; PCP Family Medicine; Referring Provider Family Medicine; Visit Provider Internal Medicine Gastroenterology
PROC: 0DJD8ZZ Inspection of Lower Intestinal Tract, Via Natural or Artificial Opening Endoscopic (ICD-10-PCS; CPT 45378; principal; 2024-09-13 09:30)
DX: Z12.11 Encounter for screening for malignant neoplasm of colon (principal); K57.30 Diverticulosis of large intestine without perforation or abscess without bleeding; K64.8 Other hemorrhoids; E66.9 Obesity, unspecified; Z68.34 Body mass index [BMI] 34.0-34.9, adult
CPT/HCPCS: 45378; J2003; J2704; J7120